=== PATIENT | male | born 1965 | race Caucasian/White ===

== ENCOUNTER 2021-07-14 09:22 | Inpatient (IN) ==
[2021-07-14] MEDS ORDERED: *HR* Propofol 200 MG/20 ML VIAL IVP ONE (09:34)
[2021-07-14] MEDS ORDERED: CeFAZolin Syr 2,000MG/20 ML 2,000 MG/20 ML SYRINGE IVPB ONE (09:35)
[2021-07-14] MEDS ORDERED: Acetaminophen IV 1,000 MG/100 ML BAG IVPB ONE (09:39)
[2021-07-14] MEDS ORDERED: Famotidine 20 MG/2 ML VIAL IVP ONE (09:39)
[2021-07-14] MEDS ORDERED: *HR* HYDROmorphone PF 0.5 MG/0.5 ML SYRINGE IVP PRN (09:44)
[2021-07-14] MEDS ORDERED: *HR* Metoprolol 5 MG/5 ML VIAL IVP PRN (09:44)
[2021-07-14] MEDS ORDERED: Albuterol 2.5 MG/3 ML NEBULIZER IH PRN (09:44)
[2021-07-14] MEDS ORDERED: Ondansetron 4 MG/2 ML VIAL IVP PRN ×2 (09:44→19:15)
[2021-07-14] MEDS ORDERED: *HR* OxyCODONE Immed Rel 5 MG TABLET PO PRN ×2 (09:44→19:15)
[2021-07-14] MEDS ORDERED: Ringers Solution, Lactated 1,000 ML IVC SCH (09:45)
[2021-07-14] MEDS ORDERED: *HR* FentaNYL (PF) 100 MCG/2 ML VIAL ONE ×2 (10:43→12:26)
[2021-07-14] MEDS ORDERED: *HR* Midazolam HCl 2 MG/2 ML VIAL ONE (10:44)
[2021-07-14] MEDS ORDERED: *HR* Rocuronium Bromide 50 MG/5 ML VIAL ONE ×2 (10:45→14:34)
[2021-07-14] MEDS ORDERED: Lidocaine -MPF 2% 2 ML VIAL ONE (10:45)
[2021-07-14] MEDS ORDERED: Heparin 1,000 UNITS/500 mL 500 ML ONE (11:10)
[2021-07-14] MEDS ORDERED: Bupivacaine-MPF 0.25% 10 ML VIAL ONE ×2 (11:32→12:58)
[2021-07-14] MEDS ORDERED: Mannitol 25% vial 12.5 GM/50 ML VIAL IVP ONE (11:45)
[2021-07-14] MEDS ORDERED: Ketamine HCL *QUVA* 50mg (1mL) SYRINGE ONE (11:58)
[2021-07-14] MEDS ORDERED: Ondansetron 4 MG/2 ML VIAL ONE (12:24)
[2021-07-14] MEDS ORDERED: *HR* Labetalol 20 MG/4 ML SYRINGE IVP ONE (12:30)
[2021-07-14] MEDS ORDERED: *HR* Magnesium Sulfate 1 GM/2 ML VIAL ONE (12:30)
[2021-07-14] MEDS ORDERED: *HR* HYDROMORPHONE 2 MG/ML VIAL ONE (13:05)
[2021-07-14] MEDS ORDERED: *HR* HYDROmorphone (PF) 1 MG/ML SYRINGE ONE (17:03)
[2021-07-14] MEDS ORDERED: 0.9 % Sodium Chloride 1,000 ML IVC SCH (19:15)
[2021-07-14] MEDS ORDERED: *HR* HYDROcodone/Acet 5/325 mg TABLET PO PRN (19:15)
[2021-07-14] MEDS ORDERED: Naloxone 0.4 MG/ML INJ IVP PRN (19:15)
[2021-07-15] MEDS: CeFAZolin 2 GM/120 ML BAG IVPB SCH ×2 (00:13→10:27)
[2021-07-15] MEDS: Acetaminophen IV 1,000 MG/100 ML BAG IVPB SCH ×2 (00:13→08:33)
[2021-07-15 02:57] VITALS: TEMP 97.7; O2SAT 92
[2021-07-15 03:04] LABS: Basophils % 0.3 %; Eosinophils # 0.2 K/mcL (0.0-0.6); Hematocrit 40.1 % (37.5-50.1); Hemoglobin 14.2 g/dL (12.9-16.9); Immature Granulocytes % 1.8 % (0-4); Lymphocytes # 1.4 K/mcL (0.6-4.6); Lymphocytes % 8.9 %; Mean Corpuscular HGB Conc 35.4 g/dL (31.6-35.5); Mean Corpuscular Hemoglobin 30.4 pg (28.0-33.3); Mean Corpuscular Volume 85.9 fL (83.0-100.0); Mean Platelet Volume 10.9 fL (9.4-12.4); Monocytes # 0.8 K/mcL (0.0-1.3); Monocytes % 5.1 %; Neutrophils # 13.2 K/mcL (1.6-8.9); Nucleated Red Blood Cells 0.3 /100 WBC (0); Platelet Count 177 K/mcL (140-400); Red Blood Count 4.67 M/mcL (4.19-5.50); Red Cell Distribution Width 12.4 % (11.5-14.5); Segmented Neutrophils % 82.9 %; White Blood Count 15.9 K/mcL (4.3-11.1)
[2021-07-15 03:09] LABS: BUN/Creatinine Ratio 16 (6-26); Blood Urea Nitrogen 19 mg/dL (6-20); Carbon Dioxide 18 mEq/L (23-29); Chloride 105 mEq/L (98-107); Potassium 5.2 mEq/L (3.5-5.1); Sodium 137 mEq/L (136-145); eGFR For African Americans > 60 (> 60)
[2021-07-15 03:10] LABS: Calcium 8.6 mg/dL (8.6-10.3); Glucose 257 mg/dL (70-105); Osmolality,Calculated 295 (280-300); eGFR For Non-African Americans > 60 (> 60)
[2021-07-15 07:36] VITALS: BP 144/77; PULSE 95
[2021-07-15] MEDS ORDERED: CeFAZolin 2 GM/120 ML BAG IVPB ONE (09:00)
[2021-07-15] MEDS ORDERED: NON-FORMULARY MEDICATION 1 EACH EACH (Losartan/Hydrochlorothiazide [Losartan-Hctz 100-12.5 PO SCH (09:00)
[2021-07-15] MEDS ORDERED: Metoprolol XL (24 HR) Succ 25 MG TAB.ER.24H PO SCH (09:00)
[2021-07-15] MEDS ORDERED: hydroCHLOROthiazide 25 MG TABLET PO SCH (09:00)
== END 2021-07-15 11:36 | disposition home or self-care (01) | DRG 661 ==
LOC: SAMDAY 09:22 → 3ANU 17:57
PROVIDERS: ADMIT Urology; ATTEND Urology